=== PATIENT | female | born 1980 | race Caucasian/White ===

== ENCOUNTER 2019-06-18 14:23 | Emergency (ER) | payer SELFPAY ==
[~2019-06-18 14:23] MED LIST: Lidocaine 1% 20 ML MDV ONE; Sodium Chloride Irrig Solution 250 ML BOT ONE
--- NOTE | 2019-06-18 14:59 | RAD ---
Radiograph right second digit 3 views: DATE: 06/18/2019 HISTORY: 38-year-old female status post acute traumatic injury to the index finger. FINDINGS: No fracture or dislocation. The fingernail appears irregular and may be injured. IMPRESSION: No fracture
[2019-06-18] MEDS ORDERED: Triple Antibiotic Oint 1 GM Packet ONE (15:21)
== END 2019-06-18 15:37 | disposition home or self-care (01) ==
LOC: MADERS 14:23
DX: S61.312A Laceration without foreign body of right middle finger with damage to nail, initial encounter (principal); G40.909 Epilepsy, unspecified, not intractable, without status epilepticus; F41.9 Anxiety disorder, unspecified; F31.9 Bipolar disorder, unspecified; F17.210 Nicotine dependence, cigarettes, uncomplicated; W23.0XXA Caught, crushed, jammed, or pinched between moving objects, initial encounter
CPT/HCPCS: 11750; 99406; J2001

== ENCOUNTER 2020-06-08 18:02 | Emergency (ER) | payer OTHER ==
[2020-06-08 19:29] LABS: #Basophils 0.2 thou/uL (0.0-0.2); #Eosinphils 0.3 thou/uL (0.0-0.7); #Lymphocytes 2.8 thou/uL (1.20-3.40); #Monocytes 0.9 thou/uL (0.11-0.59); #Neutrophils 8.6 thou/uL (1.40-6.50); %Basophils 1.6 % (0.0-1.0); %Eosinophils 2.6 % (0.0-10.0); %Lymphocytes 21.7 % (21.0-51.0); %Monocytes 6.7 % (0.0-10.0); %Neutrophils 67.4 % (42.0-75.0); Mean Corpuscular HGB CONC 30.9 g/dL (32.0-36.0); Mean Corpuscular Hemoglobin 25.5 pg (27.0-31.0); Mean Corpuscular Volume 82.4 fL (78.0-98.0); Mean Platelet Volume 7.6 fL (7.4-10.4); Platelet Count 468 thou/uL (130-400); Red Blood Cell (RBC) Count 5.12 mill/uL (4.20-5.40); White Blood Cell (WBC) Count 12.8 thou/uL (4.8-10.8)
[2020-06-08 19:38] LABS: ALT (SGPT) 19 U/L (8-55); AST (SGOT) 19 U/L (5-34); Alkaline Phosphatase 86 U/L (40-110); Anion Gap 16 mmol/L (10-20); BUN (Urea Nitrogen) 13 mg/dL (7.0-18.7); Bilirubin, Total 0.4 mg/dL (0.2-1.2); Calc. Creatinine Clearance 0 mL/min (70-130); Calcium 9.5 mg/dL (7.8-10.44); Carbon Dioxide 24 mmol/L (22-29); Chloride 104 mmol/L (98-107); Estimated GFR-MDRD 78; Globulin 3.3 g/dL (2.4-3.5); Glucose 90 mg/dL (70-105); Potassium 4.2 mmol/L (3.5-5.1); Protein, Total 7.3 g/dL (6.0-8.3); Sodium 140 mmol/L (136-145)
[2020-06-08] MEDS ORDERED: Sodium Chloride 0.9% 0 ML ONE (19:54)
[2020-06-08] MEDS ORDERED: traMADol HCl 50 MG TAB ONE (20:18)
[2020-06-08] MEDS ORDERED: Clindamycin 150 MG CAP ONE (20:18)
== END 2020-06-08 20:29 | disposition home or self-care (01) ==
LOC: MADERS 18:02
DX: K03.81 Cracked tooth (principal); K02.9 Dental caries, unspecified; K04.7 Periapical abscess without sinus; R00.0 Tachycardia, unspecified; G40.909 Epilepsy, unspecified, not intractable, without status epilepticus; F41.9 Anxiety disorder, unspecified; F31.9 Bipolar disorder, unspecified; F17.210 Nicotine dependence, cigarettes, uncomplicated
CPT/HCPCS: 36415; 80053; 84443; 85025; 86140; 99283; J7050

== ENCOUNTER 2020-09-03 06:19 | Emergency (ER) | payer OTHER ==
[2020-09-03] MEDS ORDERED: Amoxicillin/Potassium Clav 875 MG TAB ONE (06:46)
[2020-09-03] MEDS ORDERED: Ketorolac Tromethamine 30 MG/ML VIAL ONE (06:46)
== END 2020-09-03 06:54 | disposition home or self-care (01) ==
LOC: MADERS 06:19
DX: K04.7 Periapical abscess without sinus (principal); K03.81 Cracked tooth; K02.9 Dental caries, unspecified; R59.0 Localized enlarged lymph nodes; G40.909 Epilepsy, unspecified, not intractable, without status epilepticus; F17.210 Nicotine dependence, cigarettes, uncomplicated
CPT/HCPCS: 96372; 99282; J1885

== ENCOUNTER 2020-12-31 22:25 | Emergency (ER) | payer OTHER ==
[2020-12-31] MEDS ORDERED: Cephalexin 500 MG CAP ONE (23:14)
[2020-12-31] MEDS ORDERED: HYDROcodone/Acetaminophen 5/325 mg Tablet ONE (23:14)
[2020-12-31] MEDS ORDERED: Acetaminophen 325 MG TAB ONE (23:14)
== END 2020-12-31 23:30 | disposition home or self-care (01) ==
LOC: MADERS 22:25
DX: S61.012A Laceration without foreign body of left thumb without damage to nail, initial encounter (principal); F17.210 Nicotine dependence, cigarettes, uncomplicated; G40.909 Epilepsy, unspecified, not intractable, without status epilepticus; Z79.82 Long term (current) use of aspirin; W26.0XXA Contact with knife, initial encounter
CPT/HCPCS: 12001

== ENCOUNTER 2021-06-19 23:58 | Emergency (ER) | payer OTHER ==
[2021-06-20 15:33] LABS: SARS-CoV-2 PCR by NAA Not Detected (NotDetected)
== END 2021-06-20 00:31 | disposition home or self-care (01) ==
LOC: MADERS 23:58
DX: Z20.822 Contact with and (suspected) exposure to COVID-19 (principal); K21.9 Gastro-esophageal reflux disease without esophagitis; G40.909 Epilepsy, unspecified, not intractable, without status epilepticus; F17.210 Nicotine dependence, cigarettes, uncomplicated
CPT/HCPCS: 99283; U0003; U0005

== ENCOUNTER 2022-10-05 11:25 | Emergency (ER) | payer OTHER ==
[2022-10-05 12:15] LABS: #Basophils 0.2 thou/uL (0.0-0.2); #Eosinphils 0.3 thou/uL (0.0-0.7); #Lymphocytes 2.8 thou/uL (1.20-3.40); #Monocytes 0.9 thou/uL (0.11-0.59); #Neutrophils 11.4 thou/uL (1.40-6.50); %Eosinophils 2.1 % (0.0-10.0); %Lymphocytes 17.6 % (21.0-51.0); %Neutrophils 73.3 % (42.0-75.0); Hemoglobin 14.4 g/dL (12.0-16.0); Mean Corpuscular HGB CONC 31.9 g/dL (32.0-36.0); Mean Corpuscular Hemoglobin 26.6 pg (27.0-31.0); Mean Corpuscular Volume 83.4 fl (78.0-98.0); Mean Platelet Volume 7.7 fL (7.4-10.4); Platelet Count 417 10x3/uL (130-400); RBC Distribution Width 13.9 % (11.5-14.5); White Blood Cell (WBC) Count 15.6 10x3/uL (4.8-10.8)
[2022-10-05 12:28] LABS: Anion Gap 14 mmol/L (10-20); BUN (Urea Nitrogen) 6 mg/dL (7.0-18.7); Calc. Creatinine Clearance 0 mL/min (70-130); Calcium 9.5 mg/dL (7.8-10.44); Carbon Dioxide 25 mmol/L (22-29); Chloride 104 mmol/L (98-107); Estimated GFR 103; Glucose 131 mg/dL (70-105); Potassium 3.8 mmol/L (3.5-5.1); Sodium 139 mmol/L (136-145)
[2022-10-05 13:08] LABS: Bilirubin Negative (Negative); Blood, Urine Negative (Negative); Glucose, Urine (Dipstick) Negative (Negative); Ketone, Urine Negative (Negative); Leukocyte Large (Negative); Nitrite Positive (Negative); Protein, Urine (Dipstick) Negative (Neg-Trace); Specific Gravity, Urine 1.015 (1.005-1.030); Urobilinogen 0.2 mg/dL (Less than 2); pH, Urine 6.5 (5.0-9.0)
[2022-10-05 13:10] LABS: Clarity Hazy (Clear)
[2022-10-05 13:13] LABS: RBC/HPF 0-3 HPF (0-3)
[2022-10-05 13:14] LABS: Bacteria/HPF 4+ HPF (None Seen)
== END 2022-10-05 13:52 | disposition home or self-care (01) ==
LOC: MADERS 11:25
DX: M54.6 Pain in thoracic spine (principal); F41.9 Anxiety disorder, unspecified; N39.0 Urinary tract infection, site not specified; I10 Essential (primary) hypertension; K21.9 Gastro-esophageal reflux disease without esophagitis; F17.210 Nicotine dependence, cigarettes, uncomplicated
CPT/HCPCS: 71046; 72072; 80048; 81003; 81015; 84484; 85025; 93005